=== PATIENT | male | born 1965 | race Caucasian/White ===

== ENCOUNTER 2021-07-06 17:46 | Emergency (ER) | payer OTHER ==
[2021-07-06 18:53] VITALS: BP 118/64; PULSE 122; RESP 20; TEMP 98.1
--- NOTE | 2021-07-06 19:57 | XR ---
EXAMINATION TYPE: XR knee complete LT DATE OF EXAM: 07/06/2021 COMPARISON: NONE HISTORY: Knee pain TECHNIQUE: Review FINDINGS: I see no fracture nor dislocation. Joint spaces are normal. No sign of knee joint effusion. IMPRESSION: Negative left knee exam
--- NOTE | 2021-07-06 20:00 | ED ---
Lower Extremity Injury HPI - General Chief Complaint: Extremity Injury, Lower Stated Complaint: L knee injury Time Seen by Provider: 07/06/21 18:55 Source: patient Mode of arrival: ambulatory Limitations: no limitations - History of Present Illness Initial Comments: 55-year-old male presents to the emergency department from [facility]. He has chronic left knee pain. He reports that he was told to come to the emergency department for evaluation of his left knee. He denies any new trauma. States that this pain has been present for years and is no different. He does not even take any medications for the pain. Denies warmth or erythema. Still able to ambulate on the extremity. Patient unsure why [facility] was adament that he get it checked out. No other alleviating, precipitating or modifying factors - Related Data Allergies Allergy/AdvReac Type Severity Reaction Status Date / Time No Known Allergies Allergy Verified 07/06/21 18:53 Review of Systems ROS Statement: Those systems with pertinent positive or pertinent negative responses have been documented in the HPI. ROS Other: All systems not noted in ROS Statement are negative. Past Medical History Past Medical History: No Reported History History of Any Multi-Drug Resistant Organisms: None Reported Past Surgical History: No Surgical Hx Reported Past Psychological History: No Psychological Hx Reported Smoking Status: Current every day smoker Past Alcohol Use History: Abuse General Exam Limitations: no limitations General appearance: alert, in no apparent distress Head exam: Present: atraumatic, normocephalic, normal inspection Eye exam: Present: normal appearance, PERRL, EOMI. Absent: scleral icterus, conjunctival injection, periorbital swelling ENT exam: Present: normal exam, mucous membranes moist Neck exam: Present: normal inspection. Absent: tenderness, meningismus, lymphadenopathy Respiratory exam: Present: normal lung sounds bilaterally. Absent: respiratory distress, wheezes, rales, rhonchi, stridor Cardiovascular Exam: Present: regular rate, normal rhythm, normal heart sounds. Absent: systolic murmur, diastolic murmur, rubs, gallop, clicks GI/Abdominal exam: Present: soft, normal bowel sounds. Absent: distended, tenderness, guarding, rebound, rigid Extremities exam: Present: normal inspection, tenderness (to the joint line of the left knee. no joint effusion. No warmth or swelling. No deformity. 2+ radial and ulnar pusles. no calf tenderness or swelling. patient ambulatory), normal capillary refill. Absent: pedal edema, joint swelling, calf tenderness Back exam: Present: normal inspection Neurological exam: Present: alert, oriented X3, CN II-XII intact Psychiatric exam: Present: normal affect, normal mood Skin exam: Present: warm, dry, intact, normal color. Absent: rash Course Vital Signs 07/06/21 18:50 Temperature 98.1 F Pulse Rate 122 H Respiratory 20 Rate Blood Pressure 118/64 O2 Sat by Pulse 96 Oximetry Medical Decision Making - Medical Decision Making Upon arrival patient was placed into [facility] room. Patient is agreeable to x-ray. X-ray is performed and demonstrates no acute fracture. Patient's eager to be discharged back to [facility] at this time. Reports that he will ask for Motrin Tylenol for his chronic pain and return for any new or worsening symptoms. Patient was discharged home in stable condition Disposition Clinical Impression: Chronic pain of left knee Disposition: HOME SELF-CARE Condition: Stable Instructions (If sedation given, give patient instructions): Knee Pain (ED) Additional Instructions: Your x-rays are negative. You will he returned back to [facility]. Is patient prescribed a controlled substance at d/c from ED?: No Referrals: None,Stated [REFERRING] - 1-2 days Time of Disposition: 20:00
== END 2021-07-06 20:15 | disposition home or self-care (01) ==
LOC: EC 17:46
DX: M25.562 Pain in left knee (principal); G89.29 Other chronic pain; F17.200 Nicotine dependence, unspecified, uncomplicated